=== PATIENT | male | born 1960 | race Caucasian/White ===

== ENCOUNTER 2017-08-10 13:22 | Inpatient (IN) | payer OTHER ==
[2017-08-10] VITALS (27 sets, daily range): BP systolic 61–127; BP diastolic 38–76
[~2017-08-10] VITALS: Ht 180.3 cm; Wt 96.3 kg
--- NOTE | ~2017-08-10 | HC ---
[facility] [place] [address] CONSULTATION Name: CORRINA GRAY Room #: 239-P [facility] IN M.R.#: [id number] Admission: 08/10/17 Attend Phys: Bib Perez DO Discharge: Date of : 60 Report #: [id number] THIS REPORT FOR: //name// CC: Sarath Perez DATE OF SERVICE: 08/10/2017 WOUND CARE CONSULTATION REASON FOR CONSULTATION: Pressure ulcer of right posterior lower leg with cellulitis and exposed tendon. HISTORY OF PRESENT ILLNESS: The patient is a 57-year-old gentleman admitted to the Intensive Care Unit at [facility] for sepsis. This gentleman suffers from spinal stenosis and paraplegia. He has a history of respiratory failure and tracheostomy. He has history of malnutrition with PEG tube. The patient has a history of pulmonary embolism with inferior vena cava filter placement. The patient was transferred from [facility] [place] for hypotension and sepsis. Wound care is consulted due to finding of a pressure ulcer of the right posterior leg with some cellulitis. PAST MEDICAL HISTORY: Spinal stenosis with paraplegia, sleep apnea, depression, tobacco abuse, history of pulmonary embolism with intravenous vena cava filter placed, history of diabetes mellitus type 2, insulin-dependent. PAST SURGICAL HISTORY: Cervical diskectomy and cervical laminectomy in 2006, parotidectomy, PEG tube. ALLERGIES: MOXIFLOXACIN. MEDICATIONS: Include bacitracin, Lotrimin, tamsulosin, bisacodyl, DuoNeb, Synthroid, Eliquis, famotidine, Alberto, alprazolam, MiraLax, senna, Flexeril, Colace, Benadryl, Zofran, MS Contin, Lantus and Humalog insulin. REVIEW OF SYSTEMS: The patient has very limited mobility due to spinal stenosis, paraplegia. PHYSICAL EXAMINATION: GENERAL: Shows a pale, chronically ill appearing male who also appears acutely ill. HEENT: Mucous membranes are dry. HEART: Tachycardic. ABDOMEN: Soft with the PEG tube. LUNGS: Respirations are unlabored. EXTREMITIES: Examination of lower extremities shows strong dorsalis pedis [facility] [address] [place] [address] CONSULTATION Name: CORRINA GRAY Room #: 239-P [facility] IN M.R.#: [id number] Admission: 08/10/17 Attend Phys: Bib Perez DO Discharge: Date of : 60 Report #: [id number] pulses bilaterally. There is some edema in the lower extremities. Examination of the right posterior lower leg shows an open pressure wound measuring approximately 5 cm in length, 2.5 cm in width and 0.3 cm deep. There is necrotic exposed tendon protruding from the upper aspect of the wound and some superficially nonviable and necrotic tissue. There does not appear to be deep necrosis or tracking sepsis. There is some mild surrounding cellulitis. I do not believe that sepsis would be from this wound. PLAN: IV antibiotics, diabetes control, bilateral foam boots, topical treatment with Silvadene and Xeroform dressings twice daily. We will obtain consent for excisional debridement of skin, subcutaneous tissue and necrotic tendon to clean the wound, continue dressing with Silvadene and Xeroform. Order wound culture. Wound care team will follow. <ELECTRONICALLY SIGNED> By: Martin Ortiz MD 08/11/17 1245 1754 0205 Martin Ortiz MD /nt
--- NOTE | ~2017-08-10 | HC ---
[facility] [place] [address] CONSULTATION Name: CORRINA GRAY Room #: 239-P [facility] IN M.R.#: [id number] Admission: 08/10/17 Attend Phys: Bib Perez DO Discharge: Date of : 60 Report #: [id number] THIS REPORT FOR: //name// CC: Sarath Perez TYPE OF REPORT: Pulmonary consultation. REFERRING PHYSICIAN: Bib Perez D.O. REASON FOR REFERRAL: Severe sepsis. HISTORY OF PRESENT ILLNESS: The patient is a 57-year-old [facility] patient who was taken to the Emergency Room due to hypotension. He is felt to be septic. A pulmonary critical care consultation was requested. The patient is a fair historian. He appears pale and weak. He has a history of sleep apnea and is on CPAP. He is awake, presently has no complaints. He denies any chest pain or abdominal pain. PAST MEDICAL HISTORY: Notable for spinal stenosis, resulting in spasticity involving the lower extremities; cervical diskectomy in 2005; sleep apnea, on home CPAP; history of depression; tobacco abuse; history of pulmonary embolus; status post IVC filter placement, on Coumadin; intratracheal arachnoid cysts and hypothyroidism. ALLERGIES: To MOXIFLOXACIN, reactions unspecified. MEDICATIONS: List from the [place] [facility] is reviewed. This includes nystatin, tamsulosin, Bisacodyl, DuoNeb q.i.d. p.r.n., Synthroid, vitamin C supplements, Eliquis, famotidine, Alberto packet, alprazolam, senna, Flexeril, Colace, Benadryl, Zofran, MS Contin 15 mg every 4 hours p.r.n. and insulin supplements. FAMILY HISTORY: Noncontributory. SOCIAL HISTORY: No history of tobacco or alcohol use. REVIEW OF SYSTEMS: Deferred as the patient is a poor historian. PHYSICAL EXAMINATION: GENERAL: He is awake, appears pale and appears weak, cool to touch. VITAL SIGNS: Temperature is 103.6 degrees Fahrenheit, pulse is 130, respiratory rate is 20, blood pressure is 109/62 mmHg and saturation 96%. HEENT: Unremarkable. NECK: Supple, without lymphadenopathy or thyromegaly. [address] [address] CONSULTATION Name: CORRINA GRAY Room #: 239-[facility] IN M.R.#: [id number] Admission: 08/10/17 Attend Phys: Bib Perez DO Discharge: Date of : 60 Report #: [id number] CHEST: Breath sounds are fair due to poor effort, is clear anteriorly. CARDIOVASCULAR: No obvious murmurs or gallop. Pulses are 2+/4+ bilaterally. ABDOMEN: Soft. No masses felt. GENITOURINARY: Deferred. RECTAL: Deferred. EXTREMITIES: No cyanosis or clubbing. It is cool to touch. GENERAL APPEARANCE: This is a pale appearing patient. RADIOLOGICAL DATA: Chest x-ray shows small lung volumes, mild atelectasis in the bases, elevated right hemidiaphragm, small left-sided pleural effusion. CT head was normal. LABORATORY DATA: Procalcitonin level is 19.8. Lactic acid is 3.4. Arterial blood gas revealed pH 7.40, pCO2 of 31 and pO2 104 on 4 liters of O2. Electrolytes: Sodium 131, potassium 4.9, chloride 99, CO2 is 23 and creatinine 0.8. Liver function enzymes mildly elevated. WBC 37,500; hemoglobin 12.1 and platelets are normal. Albumin 2.3. Hemoglobin again is 12.1. IMPRESSION: 1. Acute hypoxic respiratory failure, is felt to be due to severe sepsis. 2. Severe sepsis, leukocytosis and transient hypotension, source is unclear at this time but need to consider urinary tract infection, possible osteomyelitis. Concerns for Clostridium difficile colitis also noted. 3. Also involving the right ankle with exposed tendon, cellulitis, this might be the source for severe sepsis. Infectious Disease has been consulted along with Orthopedic. 4. Diabetes mellitus. 5. Dysphagia status post percutaneous endoscopic gastrostomy tube placement. 6. Chronic back pain. 7. Remote history of pulmonary embolus, status post inferior vena cava filter placement, on chronic anticoagulation. 8. Hypothyroidism. 9. Generalized debility and weakness with severe lower extremity muscle atrophy. RECOMMENDATION: Agree with general treatment plans including broad-spectrum antibiotics. Sepsis protocol is recommended. DVT and GI prophylaxis will be addressed. Keep saturation 90%. Overall, prognosis felt to be guarded given severe chronic comorbid conditions. Thank you for this consultation. <ELECTRONICALLY SIGNED> By: Leland Nowak MD 08/11/17 1659 1758 0125 Leland Nowak MD /nt
--- NOTE | ~2017-08-10 | HC ---
[facility] [place] [place] [address] CONSULTATION Name: CORRINA RGAY Room #: 239-P [facility] IN M.R.#: [id number] Admission: 08/10/17 Attend Phys: Bib Perez DO Discharge: Date of : 60 Report #: [id number] THIS REPORT FOR: //name// CC: Sarath Perez HISTORY OF PRESENT ILLNESS: The patient is a 57-year-old white man admitted through the Emergency Room with diagnosis of sepsis. The patient is given vancomycin and meropenem. He is in the intensive care unit. Levophed drip has been stopped. He has chronic back pain in the lumbar area and paralyzed lower extremities. He has a chronic ulceration, right leg and cellulitic changes, right lower extremity. PAST MEDICAL HISTORY: Spinal stenosis, spasticity, question arachnoid cyst. Obstructive sleep apnea, requiring CPAP. Cigarette smoking. Previous pulmonary embolism, status post inferior vena cava filter. Suprapubic cystostomy. Percutaneous gastrostomy. DRUG ALLERGIES: MOXIFLOXACIN. MEDICATIONS: Vancomycin 1250 IV every 12 hours, meropenem 1 gram IV every 8 hours, also on treatment with omeprazole, topical Silvadene, magnesium and potassium supplementation per protocol, pressor if needed, regular insulin drip. SOCIAL HISTORY: See H and P, old records. FAMILY HISTORY: See H and P, old records. REVIEW OF SYSTEMS: Chronic back pain. PHYSICAL EXAMINATION: GENERAL: Chronically ill-appearing man, not toxic looking, alert, in no distress. VITAL SIGNS: Temperature 103.6 in the Emergency Room, pulse 119, respirations 40. Episode of hypotension, requiring pressors. Currently, temperature 97.7, pulse 107, respirations 25, BP 107/56. Intake 5500, output 500. O2 saturation 99%, 2-4 liters oxygen nasal cannula. HEENMT: Head normocephalic, atraumatic. Pupils reactive. Mouth: Poor oral hygiene. Periodontal disease. Moist mucous membrane. NECK: Supple. LUNGS: Basilar crackles, left posterior lung field. HEART: S1, S2. No gallops. ABDOMEN: Soft, no masses or megaly. Gastrostomy in place. Suprapubic cystostomy in place, leaking urine. GENITALIA AND RECTAL: Deferred. EXTREMITIES: Reveal paralyzed lower extremities, redness of right leg and right thigh. There is an ulceration on the posterior lateral aspect of right ankle [address] [address] CONSULTATION Name: CORRINA GRAY Room #: 239-P [facility] IN [facility]#: [id number] Admission: 08/10/17 Attend Phys: Bib Perez DO Discharge: Date of : 60 Report #: [id number] with exposed tendon. NEUROLOGIC: Paraplegia. LABORATORY DATA: Sodium 139, potassium 3.8, CO2 of 26, BUN 11, creatinine 0.5, glucose 119. NT-proBNP 1063. WBC on admission 37,500, today 26,800; hemoglobin 10.5 g/dL; platelets 339,000. White blood cell count differential, 93% segmented neutrophils. MRSA screen positive. Procalcitonin elevated at 19.86. Urinalysis with trace ketones and blood. Microscopic exam revealed some microscopic pyuria and bacteriuria. ABGs yesterday revealed pH 7.40, pCO2 of 31, pO2 of 104, bicarbonate 19.2, lactate 2.7; these set of gases on oxygen supplementation 4 liters nasal cannula. MICROBIOLOGY DATA: Cultures pending at the time of this dictation. RADIOLOGY EVALUATION: Chest x-ray: Left basilar atelectasis, infiltrate. CT scan brain: No acute or chronic pathology reported. ASSESSMENT: 1. Severe sepsis secondary to cellulitis, right lower extremity due to chronic ulceration, right ankle with exposed tendon. 2. Positive methicillin resistant Staphylococcus aureus screen. 3. Significant leukocytosis, improving. 4. Chronic back pain and paraplegia. 5. Percutaneous gastrostomy and suprapubic cystostomy. SUGGESTIONS: While awaiting culture results, we will continue coverage with vancomycin 1250 mg IV every 12 hours, meropenem 1 gram IV every 8 hours. Local wound care. Dr. Perez, thank you for requesting my suggestions. <ELECTRONICALLY SIGNED> By: Bay Lan MD 08/12/17 0552 0944 0252 Bay Lan MD /nt
--- NOTE | ~2017-08-10 | EKG ---
[place] [address] [facility] [place] [address] ELECTROCARDIOGRAM REPORT Name: CORRINA GRAY Room #: 239-P [facility] IN M.R.#: [id number] Admission: 08/10/17 Attend Phys: Bib Perez DO Discharge: Date of : 60 Report #: [id number] THIS REPORT FOR: //name// 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1960 Requested By: Carmine Bassett Order Number: [id number] MD: Quirino Fowler Measurements Intervals [place] Rate: 128 P: 2 IL: 154 QRS: -60 QRSD: 86 T: 89 QT: 287 QTc: 419 Interpretive Statements Sinus tachycardia LAD, consider left anterior fascicular block Borderline low voltage, extremity leads Abnormal R-wave progression, late transition Possible inferior infarct, old No previous ECG available for comparison Electronically Signed On 08-11-2017 8:49:40 CDT by Quirino Fowler [email or web address] <ELECTRONICALLY SIGNED> By: Quirino Fowler MD, [facility] 08/11/17 0849 1347 1347 Quirino Fowler MD, [facility] /EPI
--- NOTE | ~2017-08-10 | O ---
[facility] [place] [address] OPERATIVE REPORT Name: CORRINA GRAY Room #: 239-P [facility] IN M.R.#: [id number] Admission: 08/10/17 Attend Phys: Bib Perez DO Discharge: Date of : 60 Report #: [id number] THIS REPORT FOR: //name// CC: Sarath Perez DATE OF SERVICE: 08/11/2017 PREOPERATIVE DIAGNOSES: Pressure ulcer of right posterior lower leg with necrotic tendon. POSTOPERATIVE DIAGNOSES: Pressure ulcer of right posterior lower leg with necrotic tendon, with 7 x 4 cm pressure ulcer with necrotic tendon. PROCEDURE: Sharp excisional debridement by forceps, scissors and curette. A 4 x 7 cm pressure ulcer, right posterior leg with sharp scissor debridement of necrotic tendon. SURGEON: Martin Ortiz MD. ANESTHESIA: None. INDICATIONS: The patient is a 57-year-old gentleman with paraplegia, developed a pressure ulcer of the right posterior leg. There is necrotic tendon. Wound requires debridement. Informed consent was obtained. DESCRIPTION OF PROCEDURE: Without the need for anesthesia, the patient was placed on his left side. Using a forceps and sharp scissor, necrotic tendon proximally and distally was debrided from the wound down to healthy bleeding tendon. The entire wound measuring 4 x 7 cm was debrided with a sharp curette of biofilm and adherent exudate. Entire wound was completely sharply debrided including all necrotic tendon. Hemostasis was achieved with pressure and silver nitrate applicator stick. Hemostasis was complete. The entire wound measuring 4 x 7 cm was debrided. All necrotic tendon was debrided. The patient is stable, tolerated the procedure well, redressed with Silvadene, Xeroform dressing. <ELECTRONICALLY SIGNED> By: Martin Ortiz MD 08/13/17 1226 1244 1356 Martin Ortiz MD /nt
[~2017-08-10 13:22] MED LIST: ACETAMINOPHEN325 M1 PO; ACIDOPHILUS1 EAC3 PO; ALPRAZOLAM 0.50.5 M1 PO; BACITRACIN 500U30 G1 TOP; BACLOFEN20 MG PO; BISA-LAX5 MG PO; BISAC-EVAC10 MG RE; CARISOPRODOL 3350 MG PO; CITRATE OF MAG296 ML PO; CLONAZEPAM 1 MG1 M1 PO; CLOTRIMAZOLE 1%15 G1 TOP; COUMADIN 5 MG TA5 M1 PO; DIAZEPAM10 M1 PO; DUONEB 2.5-0.5 M3 ML INH; FUROSEMIDE 20 M20 M1 PO; LEXAPRO PO; LOCOID 0.1% CRE15 GM TOP; MAALOX525 MG/15 PO; NYSTATIN15 GM TOP; OXYCONTIN CR 4040 M1 PO; PROSOURCE275 GM PO; ROXICODONE PO; TAMSULOSIN HCL0.4 MG PO; [UNRECOGNIZED DRUG - REMARK] PO
[2017-08-10 13:50] LABS: RBC 4.74 mil/uL (4.50-6.00)
[2017-08-10 13:52] LABS: HEMATOCRIT 38.8 % (42.0-52.0); HEMOGLOBIN 12.1 gm/dL (14.0-18.0); MCH 25.5 pg (26.0-34.0); MCHC 31.2 g/dL (28.0-37.0); MCV 81.7 fL (80.0-100.0); PLATELET COUNT 364 thou/uL (150-400); RDW 17.3 % (10.5-14.5); WBC 37.5 thou/uL (4.0-11.0)
[2017-08-10 13:58] LABS: ANION GAP 9 mmol/L (7-16); BUN 16 mg/dL (7-18); CALCIUM 8.5 mg/dL (8.5-10.1); CHLORIDE 99 mmol/L (98-107); CO2 23 mmol/L (21-32); CREATININE 0.8 mg/dL (0.7-1.3); GLUCOSE 171 mg/dL (74-106); POTASSIUM 4.9 mmol/L (3.5-5.1); SODIUM 131 mmol/L (136-145)
[2017-08-10 14:07] LABS: ALBUMIN 2.3 g/dL (3.4-5.0); SGOT 41 U/L (15-37); SGPT 25 U/L (30-65); TOTAL BILIRUBIN 0.8 mg/dL (<0.1-1.0); TROPONIN-I < 0.04 ng/mL (<0.06)
[2017-08-10] MEDS ORDERED: SYNTHROID75 MCG PO (14:08)
[2017-08-10] MEDS ORDERED: VITAMINC500 PO (14:09)
[2017-08-10] MEDS ORDERED: ELIQUIS5 MG PO (14:10)
[2017-08-10] MEDS ORDERED: JUVEN PACKET1 EAC1 PO (14:11)
[2017-08-10] MEDS ORDERED: FAMOTIDINE 20 M20 MG PO (14:11)
[2017-08-10] MEDS ORDERED: ALPRAZOLAM 0.50.5 M1 PO (14:12)
[2017-08-10] MEDS ORDERED: MIRALAX17 GM PO (14:13)
[2017-08-10 14:14] LABS: ABSOLUTE NEUTROPHILS 36.4 thou/uL (1.4-8.2)
[2017-08-10] MEDS ORDERED: SENNA8.6 MG PO (14:15)
[2017-08-10] MEDS ORDERED: FLEXERIL PO (14:16)
[2017-08-10] MEDS ORDERED: COLACE100 MG PO (14:17)
[2017-08-10] MEDS ORDERED: BENADRYL25 MG PO (14:18)
[2017-08-10] MEDS ORDERED: ONDANSETRON HCL4 M2 PO (14:18)
[2017-08-10] MEDS ORDERED: MS CONTIN15 MG PO (14:20)
[2017-08-10] MEDS ORDERED: HUMALOG100 UNIT/2 SUBQ (14:20)
[2017-08-10] MEDS ORDERED: LANTUS100 UNIT/M SUBQ (14:20)
[2017-08-10 15:10] LABS: BE(vivo) -4.7 mmol/L (-2 to +3); HCO3 19.2 mmol/L (22.0-26.0); PCO2 31.4 mmHg (35.0-45.0); PO2 104.9 mmHg (80.0-100.0); pH 7.404 (7.360-7.450); sO2 97.9 % (92.0-98.0)
[2017-08-10 18:21] LABS: CALCIUM 7.7 mg/dL (8.5-10.1); CREATININE 0.6 mg/dL (0.7-1.3); POTASSIUM 3.3 mmol/L (3.5-5.1)
[2017-08-10 21:58] LABS: CALCIUM 7.8 mg/dL (8.5-10.1); CREATININE 0.5 mg/dL (0.7-1.3); POTASSIUM 3.7 mmol/L (3.5-5.1)
[2017-08-10 22:22] LABS: URINE BILIRUBIN NEGATIVE (Negative); URINE BLOOD TRACE (Negative); URINE CLARITY CLEAR; URINE COLOR YELLOW; URINE GLUCOSE-RANDOM* NEGATIVE (Negative); URINE KETONES TRACE (Negative); URINE NITRITE-REFLEX NEGATIVE (Negative); URINE PROTEIN (DIPSTICK) NEGATIVE (Negative); URINE SPECIFIC GRAVITY 1.025 (1.005-1.035); URINE UROBILINOGEN 0.2 E.U./dl (0.2-1.0)
[2017-08-10 22:23] LABS: URINE LEUKOCYTES-REFLEX 1+ (Negative)
[2017-08-10 22:32] LABS: BACTERIA-REFLEX 1-9 Few /HPF (None Seen); CASTS None Seen /LPF (None Seen); CRYSTALS None Seen /LPF (None Seen); SQUAMOUS None Seen /LPF (0-3); URINE RBC 0-2 Rare /HPF (0-2); URINE WBC-REFLEX 6-15 Few /HPF (0-5)
[2017-08-11] VITALS (72 sets, daily range): BP systolic 78–128; BP diastolic 51–93
[2017-08-11 03:56] LABS: CALCIUM 8.4 mg/dL (8.5-10.1); CREATININE 0.5 mg/dL (0.7-1.3); POTASSIUM 3.5 mmol/L (3.5-5.1)
[2017-08-11 04:18] LABS: HEMATOCRIT 31.5 % (42.0-52.0); HEMOGLOBIN 10.5 gm/dL (14.0-18.0); MCH 26.1 pg (26.0-34.0); MCHC 33.2 g/dL (28.0-37.0); MCV 78.7 fL (80.0-100.0); PLATELET COUNT 339 thou/uL (150-400); RDW 16.7 % (10.5-14.5); WBC 26.8 thou/uL (4.0-11.0)
[2017-08-11 07:41] LABS: ABSOLUTE NEUTROPHILS 25.5 thou/uL (1.4-8.2); ANISOCYTOSIS 1+
[2017-08-12] VITALS (28 sets, daily range): BP systolic 62–115; BP diastolic 48–71
[2017-08-12 05:38] LABS: ABSOLUTE NEUTROPHILS 14.6 thou/uL (1.4-8.2); BASOPHILS 0.2 % (0.0-2.0); EOSINOPHILS 0.1 % (0.0-3.0); HEMATOCRIT 25.8 % (42.0-52.0); HEMOGLOBIN 8.7 gm/dL (14.0-18.0); LYMPHOCYTES 4.5 % (24.0-44.0); MCH 26.5 pg (26.0-34.0); MCHC 33.9 g/dL (28.0-37.0); MCV 78.2 fL (80.0-100.0); MONOCYTES 3.4 % (1.0-8.0); POLYS 91.8 % (36.0-66.0); RDW 16.7 % (10.5-14.5); WBC 15.9 thou/uL (4.0-11.0)
[2017-08-12 05:39] LABS: PLATELET COUNT 235 thou/uL (150-400)
[2017-08-12 06:13] LABS: CALCIUM 8.4 mg/dL (8.5-10.1); CREATININE 0.5 mg/dL (0.7-1.3); MAGNESIUM 1.7 mg/dL (1.8-2.4); POTASSIUM 3.5 mmol/L (3.5-5.1)
[2017-08-12 10:52] LABS: MAGNESIUM 2.1 mg/dL (1.8-2.4); POTASSIUM 3.7 mmol/L (3.5-5.1)
[2017-08-13] VITALS (16 sets, daily range): BP systolic 82–159; BP diastolic 56–140
[2017-08-13 04:01] LABS: ABSOLUTE NEUTROPHILS 6.6 thou/uL (1.4-8.2); BASOPHILS 0.3 % (0.0-2.0); EOSINOPHILS 0.7 % (0.0-3.0); HEMATOCRIT 24.2 % (42.0-52.0); HEMOGLOBIN 8.3 gm/dL (14.0-18.0); LYMPHOCYTES 11.3 % (24.0-44.0); MCH 26.8 pg (26.0-34.0); MCHC 34.3 g/dL (28.0-37.0); MONOCYTES 5.4 % (1.0-8.0); PLATELET COUNT 194 thou/uL (150-400); POLYS 82.3 % (36.0-66.0); RDW 16.5 % (10.5-14.5)
[2017-08-13 04:03] LABS: CREATININE 0.4 mg/dL (0.7-1.3); POTASSIUM 3.4 mmol/L (3.5-5.1)
[2017-08-14 04:49] VITALS: BP 114/71
[2017-08-14 09:09] VITALS: BP 123/65
[2017-08-14 09:57] LABS: ABSOLUTE NEUTROPHILS 3.6 thou/uL (1.4-8.2); BASOPHILS 0.6 % (0.0-2.0); EOSINOPHILS 3.2 % (0.0-3.0); HEMATOCRIT 25.6 % (42.0-52.0); HEMOGLOBIN 8.6 gm/dL (14.0-18.0); LYMPHOCYTES 17.3 % (24.0-44.0); MCH 26.6 pg (26.0-34.0); MCHC 33.6 g/dL (28.0-37.0); MCV 79.4 fL (80.0-100.0); MONOCYTES 7.3 % (1.0-8.0); PLATELET COUNT 189 thou/uL (150-400); POLYS 71.6 % (36.0-66.0); RBC 3.23 mil/uL (4.50-6.00); RDW 16.4 % (10.5-14.5)
[2017-08-14 10:11] LABS: ANION GAP < 0 mmol/L (7-16); BUN 10 mg/dL (7-18); CALCIUM 8.2 mg/dL (8.5-10.1); CHLORIDE 102 mmol/L (98-107); CO2 34 mmol/L (21-32); CREATININE 0.4 mg/dL (0.7-1.3); GLUCOSE 175 mg/dL (74-106); POTASSIUM 4.2 mmol/L (3.5-5.1); SODIUM 135 mmol/L (136-145)
[2017-08-14 13:00] VITALS: BP 130/77
[2017-08-14 18:01] VITALS: BP 122/86
[2017-08-14 19:21] VITALS: BP 130/77
[2017-08-15 00:27] VITALS: BP 127/73
[2017-08-15 04:30] LABS: ABSOLUTE NEUTROPHILS 3.8 thou/uL (1.4-8.2); BASOPHILS 0.7 % (0.0-2.0); EOSINOPHILS 4.1 % (0.0-3.0); HEMATOCRIT 26.9 % (42.0-52.0); HEMOGLOBIN 8.9 gm/dL (14.0-18.0); LYMPHOCYTES 24.2 % (24.0-44.0); MCH 26.6 pg (26.0-34.0); MCHC 33.1 g/dL (28.0-37.0); MCV 80.4 fL (80.0-100.0); MONOCYTES 7.6 % (1.0-8.0); PLATELET COUNT 218 thou/uL (150-400); POLYS 63.4 % (36.0-66.0); RBC 3.34 mil/uL (4.50-6.00); RDW 16.3 % (10.5-14.5); WBC 5.9 thou/uL (4.0-11.0)
[2017-08-15 04:36] LABS: CALCIUM 8.7 mg/dL (8.5-10.1); CREATININE 0.4 mg/dL (0.7-1.3); POTASSIUM 4.3 mmol/L (3.5-5.1)
[2017-08-15 04:46] VITALS: BP 116/68
[2017-08-15 07:25] VITALS: BP 122/67
[2017-08-15 11:10] VITALS: BP 123/63
[2017-08-15] MEDS ORDERED: ROCEPHIN 11 GM/1001 IV (11:23)
[2017-08-15] MEDS ORDERED: MS CONTIN15 MG PO (11:23)
[2017-08-15] MEDS ORDERED: OXYBUTYNIN 5 MG5 M1 PO (11:24)
== END 2017-08-15 19:00 | DRG 853 ==
LOC: ER 13:22 → ICU 13:57 → EROBS 13:57 → ICU 16:31 → 2N 08-13 17:10
PROVIDERS: Emergency Medicine; Family Medicine; Nurse Practitioner; Nurse Practitioner Family
PROC: 0LBS0ZZ Excision of Right Ankle Tendon, Open Approach (ICD-10-PCS; principal; 2017-08-11)
DX: A41.9 Sepsis, unspecified organism (principal); L89.514 Pressure ulcer of right ankle, stage 4; J96.21 Acute and chronic respiratory failure with hypoxia; L03.115 Cellulitis of right lower limb; G82.20 Paraplegia, unspecified; E11.52 Type 2 diabetes mellitus with diabetic peripheral angiopathy with gangrene; I96 Gangrene, not elsewhere classified; G47.33 Obstructive sleep apnea (adult) (pediatric); B95.0 Streptococcus, group A, as the cause of diseases classified elsewhere; F41.0 Panic disorder [episodic paroxysmal anxiety]; R65.20 Severe sepsis without septic shock; F32.9 Major depressive disorder, single episode, unspecified; E11.9 Type 2 diabetes mellitus without complications; R13.10 Dysphagia, unspecified; G89.29 Other chronic pain; B95.62 Methicillin resistant Staphylococcus aureus infection as the cause of diseases classified elsewhere; M54.9 Dorsalgia, unspecified; E03.9 Hypothyroidism, unspecified; Z99.81 Dependence on supplemental oxygen; Z86.711 Personal history of pulmonary embolism; Z87.891 Personal history of nicotine dependence; Z93.0 Tracheostomy status; Z79.899 Other long term (current) drug therapy; Z93.1 Gastrostomy status; Z79.4 Long term (current) use of insulin; Z88.8 Allergy status to other drugs, medicaments and biological substances
CPT/HCPCS: 10078; 10081; 27000

== ENCOUNTER 2017-08-25 13:36 | Emergency (ER) | payer OTHER ==
[~2017-08-25] VITALS: Ht 182.9 cm; Wt 93.0 kg
[~2017-08-25 13:36] MED LIST changes: +BENADRYL25 MG PO; +COLACE100 MG PO; +ELIQUIS5 MG PO; +FAMOTIDINE 20 M20 MG PO; +FLEXERIL PO; +HUMALOG100 UNIT/2 SUBQ; +JUVEN PACKET1 EAC1 PO; +LANTUS100 UNIT/M SUBQ; +MIRALAX17 GM PO; +MS CONTIN15 MG PO; +ONDANSETRON HCL4 M2 PO; +OXYBUTYNIN 5 MG5 M1 PO; +ROCEPHIN 11 GM/1001 IV; +SENNA8.6 MG PO; +SYNTHROID75 MCG PO; +VITAMINC500 PO
== END 2017-08-25 13:57 | disposition home or self-care (01) ==
LOC: ER 13:36
DX: Z45.2 Encounter for adjustment and management of vascular access device (principal); F32.9 Major depressive disorder, single episode, unspecified; E03.9 Hypothyroidism, unspecified; Z90.89 Acquired absence of other organs; Z88.1 Allergy status to other antibiotic agents

== ENCOUNTER 2017-11-14 21:22 | Inpatient (IN) | payer OTHER ==
[~2017-11-14] VITALS: Ht 180.3 cm; Wt 86.2 kg
--- NOTE | ~2017-11-14 | EKG ---
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1960 Requested By: Nathan Rosario Order Number: [id number] MD: Quirino Fowler Measurements Intervals [place] Rate: 127 P: -17 CT: 139 QRS: 29 QRSD: 85 T: 45 QT: 307 QTc: 447 Interpretive Statements Sinus tachycardia Abnormal R-wave progression, late transition Compared to ECG 08/10/2017 13:47:47 ST and T wave abnormality is less pronounced Electronically Signed On 11-15-2017 7:47:24 CDT by Quirino Fowler [email or web address] <ELECTRONICALLY SIGNED> By: Quirino Fowler MD, [facility] 11/15/17 0747 26 26 Quirino Fowler MD, [facility] /EPI
--- NOTE | ~2017-11-14 | HC ---
[facility] [place] [address] CONSULTATION Name: CORRINA GRAY Room #: 430-[facility] IN M.R.#: [id number] Admission: 11/15/17 Attend Phys: Dimitri Soler MD Discharge: Date of : 60 Report #: [id number] THIS REPORT FOR: //name// CC: [place] physician/PCP Dimitri Soler DATE OF SERVICE: 11/15/2017 Infectious Disease Consultation ATTENDING PHYSICIAN: Dimitri Soler MD REASON FOR CONSULTATION: Leukocytosis, right leg ulcer. HISTORY OF PRESENT ILLNESS: A 57-year-old white man is admitted through the emergency room with a history of nausea and vomiting, as well as some abdominal pain. Other than those complaints, the only thing the patient tells me is that he would like to have pregabalin and alprazolam prescribed for him. PAST MEDICAL HISTORY: Spinal stenosis with spastic paraparesis, chronic constipation, history of cervical diskectomy, laminectomy in 2005, parotidectomy in 1997, obstructive sleep apnea, hypothyroidism, periodontal disease. DRUG ALLERGIES: MOXIFLOXACIN. MEDICATIONS: The patient is on insulin glargine, famotidine, Zosyn 3.375 grams IV every 8 hours, insulin lispro, p.r.n. glucose Glucagon, p.r.n. morphine sulfate, p.r.n. ondansetron, normal saline 1000 mL/hour. SOCIAL HISTORY: See H and P, old records. FAMILY HISTORY: See H and P, old records. REVIEW OF SYSTEMS: Not contributory besides what has been described above. PHYSICAL EXAMINATION: GENERAL: Chronically ill-appearing man, afebrile. VITAL SIGNS: Temperature 98.3, pulse 98, respirations 18, BP 121/80, height 5 feet 11 inches, weight 190 pounds. HEENT: Head normocephalic, atraumatic. Pupils reactive. Mouth: Periodontal disease, carious teeth. NECK: Supple. LUNGS: Clear. HEART: S1, S2. No gallop or murmur. ABDOMEN: Suprapubic cystostomy and the patient also incontinent of the urine through the urethra. The abdomen is soft, not abnormal tenderness. The hard [facility] [address] [place] [address] CONSULTATION Name: CORRINA GRAY Room #: 430-P [facility] IN [facility].#: [id number] Admission: 11/15/17 Attend Phys: Dimitri Soler MD Discharge: Date of : 60 Report #: [id number] stools palpable in left colon BACK: Revealed no decubitus in the sacral area. The patient is incontinent of liquid stools. EXTREMITIES: Ulceration, right leg, lateral aspect. No signs of infection at this time. NEUROLOGIC: Spastic paraparesis. LABORATORY DATA: Sodium 138, potassium 3.8, BUN 15, creatinine 0.5, glucose 169, albumin 3.3. WBC 44082 on admission, 63091 today, hemoglobin down to 12.7 g/dL today. Platelets 306,000. Urinalysis abnormal with proteinuria, positive leukocyte esterase, positive blood. The microscopic exam revealed pyuria, bacteriuria, microscopic hematuria, moderate phosphate. MICROBIOLOGY DATA: Blood cultures negative. Urine culture pending. RADIOLOGY DATA: CT scan of abdomen and pelvis revealed decubitus ulcer, which is not confirmed by physical examination. Suprapubic cystostomy. Diffuse bladder thickening. Large amount of stool in rectal area consistent with fecal impaction. ASSESSMENT: 1. Leukocytosis, question etiology. 2. Nausea, vomiting, question etiology. 3. Chronic constipation. 4. Suprapubic cystostomy. 5. Spastic paraparesis. 6. Chronic ulceration, right leg. SUGGESTIONS: Recommend await culture results and for the time being, continue Zosyn, but I think we may not need an antibiotic. Local wound care to right leg. Bowel preps to get rid of rectal impaction with hard stools. Dr. Soler, thank you for requesting my suggestions. <ELECTRONICALLY SIGNED> By: Bay Lan MD 11/16/17 1017 1031 0133 Bay Lan MD /nt
--- NOTE | ~2017-11-14 | HC ---
[facility] [place] [address] CONSULTATION Name: CORRINA GRAY Room #: 430-P [facility] IN ..#: [id number] Admission: 11/15/17 Attend Phys: Dimitri Soler MD Discharge: Date of : 60 Report #: [id number] THIS REPORT FOR: //name// CC: [place] physician/PCP Dimitri Soler DATE OF SERVICE: 11/16/2017 WOUND CARE CONSULTATION REASON FOR CONSULTATION: Pressure ulcer of right ankle. HISTORY OF PRESENT ILLNESS: The patient is an unfortunate 57-year-old gentleman, with spinal stenosis and spastic paraparesis, who is chronically immobile with a neurogenic bladder, suprapubic catheter and fecal incontinence. The patient was admitted to the Emergency Room for nausea, vomiting and some abdominal pain. He lives in a long-term care facility. Wound Care was asked to see him due to the finding of a pressure ulcer of the right leg. PAST MEDICAL HISTORY: 1. Spinal stenosis. 2. Immobility with spastic paraparesis. 3. Sleep apnea. 4. Depression. 5. History of pulmonary embolism, on Coumadin. 6. Diabetes mellitus, type 2. 7. Paraplegia. 8. Gastroesophageal reflux disease. 9. Neurogenic bladder. 10. Fecal incontinence. PAST SURGICAL HISTORY: Cervical diskectomy, cervical laminectomy in September 2005, parotidectomy. MEDICATIONS: Include ceftriaxone, oxybutynin, clotrimazole, hydrocortisone, tamsulosin, bisacodyl, levothyroxine, Pepcid, alprazolam, insulin. PHYSICAL EXAMINATION: GENERAL: Shows chronically ill-appearing gentleman, immobile. He is conversant. HEENT: Mucous membranes are moist. NECK: Supple. LUNGS: Respirations unlabored. ABDOMEN: Soft. Suprapubic catheter is present. EXTREMITIES: Shows stage 2, 1 x 1.5 cm pressure ulcer over the sacral area. Examination of the lower extremities shows his right lateral lower leg at the [facility] [address] [place] [address] CONSULTATION Name: CORRINA GRAY Room #: 430-[facility] IN [facility]#: [id number] Admission: 11/15/17 Attend Phys: Dimitri Soler MD Discharge: Date of : 60 Report #: [id number] ankle, a 2 x 1.5 x 0.3 cm deep pressure ulceration of the right lateral lower leg at the ankle. At the margins of this, there is pink granulation tissue. At the base of this, is exposed tendon. IMPRESSION: 1. Paraplegia secondary to spinal stenosis. 2. Immobility. 3. Diabetes mellitus with skin ulceration. 4. Neurogenic bladder. 5. Fecal incontinence. 6. Sacral stage 2 pressure ulcer. 7. History of pulmonary embolism. 8. Moderate protein calorie malnutrition. 9. Right ankle stage 4 pressure ulcer with exposed tendon at base. PLAN: Barrier cream to the sacral area with low air loss mattress for offloading. For the ulcer of the right ankle, would recommend Puracol Ag dressing with a foam border to be changed daily. Offload with foam boot. Wound care team will follow the wound of the right lower leg and ankle. When the patient is discharged, he can be followed up in [facility]. <ELECTRONICALLY SIGNED> By: Martin Ortiz MD 11/19/17 1257 1418 2358 Martin Ortiz MD /nt
--- NOTE | ~2017-11-14 | P ---
[facility] [place] [address] PROCEDURE REPORT Name: CORRINA GRAY Room #: 430-P [facility] [place] ..#: [id number] Admission: 11/15/17 Attend Phys: Dimitri Soler MD Discharge: 11/20/17 Date of : 60 Report #: [id number] THIS REPORT FOR: //name// CC: Martin Cueva MD [facility] physician/PCP Bay Soler MD DATE OF SERVICE: 11/20/2017 PROCEDURE PERFORMED: Colonoscopy. HISTORY OF PRESENT ILLNESS: The patient is a 57-year-old male who was seen in consultation for abdominal pain. He has a history of spinal stenosis, paraplegia, chronic back pain, on chronic narcotics. He has a PEG tube in place as well as a suprapubic catheter. CT scan of the abdomen and pelvis on admission showed a large amount of stool in the rectum consistent with fecal impaction. There is some adjacent wall thickening from inflammatory reactions. The patient has a decubitus ulcer as well. He has never had a colonoscopy in the past. The patient was attempted and prepped for colonoscopy last Monday, but still had a large amount of solid stool. The prep continued over the weekend. Plan is for colonoscopy today. He denies any abdominal pain currently. No family history of colon cancer. DESCRIPTION OF PROCEDURE: The risks and benefits of the procedure were explained to the patient, those risks including but not limited to bleeding, perforation, the risk of sedation. He understood these risks and gave informed consent. Sedation was given using propofol per anesthesia. Next, a digital rectal exam showed evidence of a solid stool within the rectum. I digitally removed as much as possible. At this point, using an Olympus standard colonoscope, the scope was placed in the patient's anus. I was able to advance even though there was a fair amount of solid stool in the rectum and advanced the scope into the sigmoid colon, at which point, the prep was much improved. I was able to advance the scope to the cecum. Most of the cecum was visualized, but there was some semi-liquid stool. Multiple washings and aspirations were performed today. The visualized portion of the cecum and the ileocecal valve were normal. The prep in the ascending and transverse colon was actually very good. All those areas were normal. There was still some semi-liquid stool in the descending and sigmoid colon, but also normal in areas that were visualized. In the rectum, I did not see any obvious colitis or inflammation. Again, there was more solid stool in the rectum. I was able to manually remove more of the stool today, but it did limit visualization of the rectum. Again, no colitis or ulcerations were noted. There was no evidence of bleeding. No polyps were seen throughout the exam today. The scope was then withdrawn and the procedure [address] [address] PROCEDURE REPORT Name: GRAYCORRINA Grayson Room #: 430-P [facility] [place] .R.#: [id number] Admission: 11/15/17 Attend Phys: Dimitri Soler MD Discharge: 11/20/17 Date of : 60 Report #: [id number] terminated. The patient tolerated the procedure well. IMPRESSION: Moderate amount of semi-liquid and stool within the rectum as well as cecum and left colon, but most areas were fairly well visualized today. There was no evidence of polyps, any masses or colitis. RECOMMENDATIONS: We will continue bowel regimen of MiraLax on a daily basis. Thank you for allowing me to participate in his care. <ELECTRONICALLY SIGNED> By: Clayton Lechuga MD 11/21/17 [id number] Clayton Lechuga MD /nt
[2017-11-14 21:34] VITALS: BP 131/100
[2017-11-14 22:29] LABS: URINE BILIRUBIN NEGATIVE (Negative); URINE BLOOD 1+ (Negative); URINE CLARITY CLEAR; URINE COLOR YELLOW; URINE GLUCOSE-RANDOM* NEGATIVE (Negative); URINE KETONES NEGATIVE (Negative); URINE LEUKOCYTES-REFLEX 3+ (Negative); URINE NITRITE-REFLEX NEGATIVE (Negative); URINE PROTEIN (DIPSTICK) 3+ (Negative); URINE SPECIFIC GRAVITY <= 1.005 (1.005-1.035); URINE UROBILINOGEN 0.2 E.U./dl (0.2-1.0)
[2017-11-14 22:37] LABS: BACTERIA-REFLEX >30 Many /HPF (None Seen); CASTS None Seen /LPF (None Seen); SQUAMOUS 0-3 Few /LPF (0-3); TRIPLE PHOSPHATE CRYSTALS >10 Many /LPF (None Seen); URINE WBC-REFLEX 0-5 Rare /HPF (0-5)
[2017-11-14 22:38] LABS: AMORPHOUS PHOSPHATES Moderate /LPF (None Seen); MUCUS 4-6 Moderate strn/LPF (None Seen)
[2017-11-14 22:39] LABS: ABSOLUTE NEUTROPHILS 13.5 thou/uL (1.4-8.2); BASOPHILS 0.5 % (0.0-2.0); EOSINOPHILS 0.3 % (0.0-3.0); HEMATOCRIT 43.4 % (42.0-52.0); HEMOGLOBIN 14.2 gm/dL (14.0-18.0); LYMPHOCYTES 11.6 % (24.0-44.0); MCH 26.2 pg (26.0-34.0); MCHC 32.8 g/dL (28.0-37.0); MCV 79.8 fL (80.0-100.0); MONOCYTES 5.2 % (1.0-8.0); PLATELET COUNT 310 thou/uL (150-400); POLYS 82.4 % (36.0-66.0); RBC 5.43 mil/uL (4.50-6.00); RDW 16.4 % (10.5-14.5); WBC 16.4 thou/uL (4.0-11.0)
[2017-11-14 22:51] LABS: CALCIUM 9.8 mg/dL (8.5-10.1); CREATININE 0.5 mg/dL (0.7-1.3); POTASSIUM 3.8 mmol/L (3.5-5.1)
[2017-11-14 22:57] LABS: ALBUMIN 3.3 g/dL (3.4-5.0); TOTAL BILIRUBIN 0.7 mg/dL (<0.1-1.0); TOTAL PROTEIN 8.1 g/dL (6.4-8.2)
[2017-11-15 02:12] VITALS: BP 120/80
[2017-11-15 02:45] VITALS: BP 109/76
[2017-11-15] MEDS ORDERED: PROZAC20 MG PO (02:57)
[2017-11-15] MEDS ORDERED: JUVEN PACKET1 EAC1 PO (03:02)
[2017-11-15 05:46] LABS: HEMOGLOBIN 12.7 gm/dL (14.0-18.0); MCH 26.6 pg (26.0-34.0); MCHC 33.5 g/dL (28.0-37.0); MCV 79.5 fL (80.0-100.0); RBC 4.78 mil/uL (4.50-6.00); RDW 16.3 % (10.5-14.5); WBC 12.4 thou/uL (4.0-11.0)
[2017-11-15 06:05] LABS: CREATININE 0.5 mg/dL (0.7-1.3); POTASSIUM 3.8 mmol/L (3.5-5.1)
[2017-11-15 07:31] VITALS: BP 121/80
[2017-11-15 16:53] VITALS: BP 131/94
[2017-11-15 19:54] VITALS: BP 123/90
[2017-11-15 21:15] LABS: % SATURATION 15 % (20-39); IRON 37 ug/dL (65-175); TIBC 247 ug/dL (250-450)
[2017-11-16 05:10] VITALS: BP 138/80
[2017-11-16 07:10] VITALS: BP 149/94
[2017-11-16 16:00] VITALS: BP 126/84
[2017-11-16 20:11] VITALS: BP 128/76
[2017-11-17 04:06] VITALS: BP 122/69
[2017-11-17 06:03] LABS: HEMATOCRIT 28.5 % (42.0-52.0); MCHC 33.5 g/dL (28.0-37.0); MCV 80.6 fL (80.0-100.0); RBC 3.54 mil/uL (4.50-6.00); RDW 16.1 % (10.5-14.5); WBC 8.5 thou/uL (4.0-11.0)
[2017-11-17 06:06] LABS: HEMOGLOBIN 9.6 gm/dL (14.0-18.0)
[2017-11-17 06:09] LABS: CALCIUM 8.2 mg/dL (8.5-10.1); CREATININE 0.3 mg/dL (0.7-1.3)
[2017-11-17 06:11] LABS: POTASSIUM 2.8 mmol/L (3.5-5.1)
[2017-11-17 08:16] VITALS: BP 135/70
[2017-11-17 20:00] VITALS: BP 133/80
[2017-11-18 04:37] VITALS: BP 128/64
[2017-11-18 04:38] VITALS: BP 128/64
[2017-11-18 07:45] VITALS: BP 123/75
[2017-11-18 10:24] LABS: ABSOLUTE NEUTROPHILS 5.2 thou/uL (1.4-8.2); BASOPHILS 0.4 % (0.0-2.0); EOSINOPHILS 5.9 % (0.0-3.0); HEMATOCRIT 28.9 % (42.0-52.0); HEMOGLOBIN 9.6 gm/dL (14.0-18.0); LYMPHOCYTES 20.1 % (24.0-44.0); MCH 26.8 pg (26.0-34.0); MCHC 33.4 g/dL (28.0-37.0); MCV 80.3 fL (80.0-100.0); MONOCYTES 7.4 % (1.0-8.0); PLATELET COUNT 159 thou/uL (150-400); POLYS 66.2 % (36.0-66.0); RDW 15.9 % (10.5-14.5); WBC 7.9 thou/uL (4.0-11.0)
[2017-11-18 10:35] LABS: CREATININE 0.3 mg/dL (0.7-1.3); POTASSIUM 3.7 mmol/L (3.5-5.1)
[2017-11-18 16:30] VITALS: BP 149/80
[2017-11-18 16:48] VITALS: BP 149/80
[2017-11-18 20:00] VITALS: BP 151/92
[2017-11-19 04:27] VITALS: BP 165/93
[2017-11-19 05:25] LABS: HEMATOCRIT 30.6 % (42.0-52.0); HEMOGLOBIN 10.3 gm/dL (14.0-18.0); MCHC 33.8 g/dL (28.0-37.0); RBC 3.82 mil/uL (4.50-6.00); RDW 15.8 % (10.5-14.5); WBC 7.2 thou/uL (4.0-11.0)
[2017-11-19 05:38] LABS: CALCIUM 8.7 mg/dL (8.5-10.1); CREATININE 0.3 mg/dL (0.7-1.3)
[2017-11-19 10:53] VITALS: BP 166/93
[2017-11-19 17:14] VITALS: BP 180/79
[2017-11-19 19:58] VITALS: BP 109/51
[2017-11-19 20:05] VITALS: BP 145/76
[2017-11-20 06:17] VITALS: BP 155/88
[2017-11-20 07:11] VITALS: BP 156/84
[2017-11-20 13:29] VITALS: BP 145/97
[2017-11-20 13:30] VITALS: BP 145/97
[2017-11-20] MEDS ORDERED: MIRALAX17 GM PO (15:32)
== END 2017-11-20 17:31 | DRG 871 ==
LOC: ER 21:22 → EROBS 11-15 01:31 → 4E 11-15 01:31 → 3W 11-15 02:15 → 4E 11-15 02:17
PROVIDERS: Emergency Medicine; Hospitalist; Internal Medicine Gastroenterology; Nurse Practitioner Family
PROC: 0DJD8ZZ Inspection of Lower Intestinal Tract, Via Natural or Artificial Opening Endoscopic (ICD-10-PCS; principal; 2017-11-20)
PROC: 0T2BX0Z Change Drainage Device in Bladder, External Approach (ICD-10-PCS; principal; 2017-11-20)
DX: A41.9 Sepsis, unspecified organism (principal); L89.514 Pressure ulcer of right ankle, stage 4; K51.30 Ulcerative (chronic) rectosigmoiditis without complications; N39.0 Urinary tract infection, site not specified; G04.1 Tropical spastic paraplegia; L97.919 Non-pressure chronic ulcer of unspecified part of right lower leg with unspecified severity; E44.0 Moderate protein-calorie malnutrition; F11.20 Opioid dependence, uncomplicated; F32.9 Major depressive disorder, single episode, unspecified; E03.9 Hypothyroidism, unspecified; G89.29 Other chronic pain; M54.9 Dorsalgia, unspecified; D72.829 Elevated white blood cell count, unspecified; K21.9 Gastro-esophageal reflux disease without esophagitis; M48.00 Spinal stenosis, site unspecified; E11.622 Type 2 diabetes mellitus with other skin ulcer; L89.152 Pressure ulcer of sacral region, stage 2; N31.9 Neuromuscular dysfunction of bladder, unspecified; K56.41 Fecal impaction; G47.33 Obstructive sleep apnea (adult) (pediatric); I48.2 Chronic atrial fibrillation; R13.10 Dysphagia, unspecified; E11.649 Type 2 diabetes mellitus with hypoglycemia without coma; K05.6 Periodontal disease, unspecified; Z79.899 Other long term (current) drug therapy; Z87.891 Personal history of nicotine dependence; Z88.8 Allergy status to other drugs, medicaments and biological substances; Z86.711 Personal history of pulmonary embolism; Z93.0 Tracheostomy status; Z68.26 Body mass index [BMI] 26.0-26.9, adult; Z79.01 Long term (current) use of anticoagulants; Z93.1 Gastrostomy status
CPT/HCPCS: 10183; 62110; 62900; 70005